=== PATIENT | female | born 1985 | race Caucasian/White ===

== ENCOUNTER 2020-06-29 19:55 | Observation (INO) | payer MEDICAID, OTHER ==
[~2020-06-29] VITALS: Ht 152.4 cm; Wt 114.3 kg
[2020-06-29] MEDS ORDERED: VITAMIN B (20:37)
[2020-06-29] MEDS ORDERED: PREN1TAB78 PO (20:37)
[2020-06-29] MEDS ORDERED: FERR325T6 PO (20:37)
[2020-06-29 21:17] LABS: CLARITY URINE CLOUDY (CLEAR); COLOR URINE YELLOW (YELLOW); KETONES URINE TRACE (NEGATIVE); LEUKOCYTE ESTERASE URINE 1+ (NEGATIVE); NITRITE URINE POSITIVE (NEGATIVE); OCCULT BLOOD URINE NEGATIVE (NEGATIVE); PROTEIN URINE NEGATIVE (NEGATIVE); SPECIFIC GRAVITY URINE 1.021 (1.005-1.030)
[2020-06-30] MEDS ORDERED: CEPH250C2 MT (03:08)
== END 2020-06-29 22:42 | disposition home or self-care (01) ==
LOC: 8 EST LDRP 19:55
PROVIDERS: ADMIT Obstetrics & Gynecology; ATTEND Obstetrics & Gynecology
DX: O98.513 Other viral diseases complicating pregnancy, third trimester (principal); U07.1 COVID-19; R06.02 Shortness of breath; O99.513 Diseases of the respiratory system complicating pregnancy, third trimester; R07.81 Pleurodynia; O26.893 Other specified pregnancy related conditions, third trimester; R10.10 Upper abdominal pain, unspecified; R05 Cough; R30.9 Painful micturition, unspecified; Z3A.31 31 weeks gestation of pregnancy
CPT/HCPCS: 59025; 76805; 76818; 81003; 87426; 87804; G0378; 99281

== ENCOUNTER 2020-06-29 22:30 | Emergency (ER) | payer MEDICAID, OTHER ==
[~2020-06-29] VITALS: Ht 152.4 cm; Wt 115.0 kg
[~2020-06-29 22:30] MED LIST: FERR325T6 PO; PREN1TAB78 PO; VITAMIN B
[2020-06-30 02:59] VITALS: BP 95/56
[2020-06-30] MEDS ORDERED: CEPH250C2 MT (03:08)
== END 2020-06-30 03:26 | disposition home or self-care (01) ==
LOC: ER 22:30
DX: O98.513 Other viral diseases complicating pregnancy, third trimester (principal); O99.513 Diseases of the respiratory system complicating pregnancy, third trimester; U07.1 COVID-19; J98.8 Other specified respiratory disorders; Z98.890 Other specified postprocedural states; Z3A.33 33 weeks gestation of pregnancy
CPT/HCPCS: 71045; 99283